=== PATIENT | female | born 2000 | race Caucasian/White ===

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

== ENCOUNTER 2022-06-28 08:00 | Outpatient (RCR) | payer BC, SELFPAY ==
--- NOTE | 2022-06-28 09:00 | BH.SGPN.GN ---
Behaviors/Verbalizations/Mental Status: [] Eye contact is good. Motor activity is appropriate. Appearance is casual. Speech is Appropriate. Mood is anxious. Affect is congruent. Thoughts are linear and logical. No evidence of psychosis. Reviewed daily check in sheet and no reports of suicidal ideations or intent. Client Response/Progress/Benefit: [] Pt participated when prompted. Attentive. This was pt?s first day in [facility] and she briefly introduced herself to the group. Group provided feedback, suggestions, and guidance for her first day/week in [facility] which was beneficial .Will continue in [facility] to maintain safety, stabilize mood, and increase healthy coping skills. Narrative Note: []
--- NOTE | 2022-06-28 09:00 | BH.COMM_ITS ---
Communication Note - Communication with Client Communication Note: Pt completed admission paperwork and [place] [facility]. Moderate risk. Denies active SI, plan, or intent. Consulted with Dr. Krueger with plan to admit to [facility] with dx of F31.81
--- NOTE | 2022-06-28 10:14 | BH.SGPN.GN ---
Behaviors/Verbalizations/Mental Status: [] Client alert and oriented, neatly dressed and groomed. Eye contact good. Motor activity appropriate. Speech normal. Affect congruent, mood euthymic. Thoughts linear, logical, no signs of hallucinations or delusions. Client Response/Progress/Benefit: [] Client's first day in program and getting adjusted to group environment. Was an engaged participant AEB client listening and sharing some input. Attentive during psychoeducation on communication styles. Assisted group with identifying barriers of effective communication which included: assuming, shutting down, dominating the conversation, and getting emotional. Benefited from increased awareness of different communication barriers, styles, and the importance of communicating effectively to improve mental wellness. Will continue IOP tx to increase overall functioning, increase self-awareness, and prevent decompensation. Narrative Note: []
--- NOTE | 2022-07-03 09:03 | BH.SGPN.GN ---
Behaviors/Verbalizations/Mental Status: []Eye contact good, casually dressed, motor activity appropriate, speech normal rate and tone, mood dysthymic and anxious, congruent affect, thoughts linear and intact, no evidence of delusions or hallucinations. Reviewed pt's symptom tracker, pt denies suicidal ideation, plan, or intent as of this date. Future oriented. Client Response/Progress/Benefit: []Pt responded well to session, attentive and willing to process with group. Pt reports feeling numb, but positive this morning. Pt did well to identify wins, which included challenging herself to be social on two occasions over the weekend. Shared spending time with her roommates by doing karaoke at home which she found really enjoyable. Additionally, identified use of positive self-talk and opposite action to go to a social event Sunday night, despite not usually enjoying larger social settings. Expressed trying to remain present rather than disengaged, which she feels improved her mood throughout. Current stressor identified as not enjoying track and field as much as she has in the past. Shared she still loves the sport but is finding she is unsure of whether or not she wants to continue to compete. Receptive of supportive feedback provided by the group and noted plans to continue to monitor her feelings about the sport as she is addressing her mental health sx as well. Progress noted in beginning to apply skills learned thus far in IOP group. Recommended continued IOP tx to continue to improve consistent use of healthy emotion regulation skills, promote mood stability, as well as prevent decompensation. Narrative Note: []
--- NOTE | 2022-07-03 10:10 | BH.SGPN.GN ---
Behaviors/Verbalizations/Mental Status: []Pt alert and oriented, neatly dressed and groomed. Eye contact fair. Motor activity appropriate. Speech within normal limits. Affect constricted, mood content. Thoughts linear, logical, no signs of hallucinations or delusions. Client Response/Progress/Benefit: []Pt was an engaged participant AEB providing input, listening to others, and taking notes. Participated in interactive group discussion on internal and external barriers to mental health progress. Pt described current reality using a desert metaphor. Pt shared feeling like ?I?m in a desert and I see a bunch of small problems that I make big problems, but I?m ignoring the big one.? Reported desired reality is being able to protect herself in this ?desert? by using healthy skills and challenging her perspective. Pt?s strengths in current reality included self-awareness and planning ahead. Pt shared personal barriers to desired realty include: negative thinking and emotional dysregulation. Benefited from increased awareness of current barriers to progress as well as current/desired realities. Pt to continue IOP to prevent decompensation, improve daily functioning, and increase use of healthy coping skills. ? Narrative Note: []
--- NOTE | 2022-07-05 09:00 | BH.SGPN.GN ---
Behaviors/Verbalizations/Mental Status: []Pt alert and oriented, neatly dressed and groomed. Eye contact fair. Motor activity appropriate. Speech within normal limits. Affect constricted, mood mellow. Thoughts linear, logical, no signs of hallucinations or delusions. Reviewed pt?s symptom tracker, no risk for suicidal ideation, plan, or intent as of 07/05/22 Client Response/Progress/Benefit: [] Pt responded well to session, quiet, but participating when prompted. Pt reports feeling tired this morning due to staying up late for school work. Pt shared her stressor is that she has so much work to do and a track meet this weekend. Pt reported she knows she will get the work done she just has to find the time. Pt's mental health wins today are that she is going to the gym consistently and she had a [place] squatting. Pt also booked a trip for this summer with a friend which pt is looking forward to. Pt appeared to benefit from reflecting on positives. Pt will continue IOP tx to prevent decompensation, improve daily functioning, and gain healthy coping skills. Narrative Note: []
--- NOTE | 2022-07-05 10:35 | BH.MTP_ITS ---
[facility] Treatment Plan - Patient Information Program Physician:: Dr. Charlene Krueger Primary Therapist:: DAMASO Flores - Psychiatric Diagnoses Psychiatric Diagnoses:: 1. Bipolar 1 disorder, most recent episode depression, severe with psychotic features (F31.5). 2. Generalized anxiety disorder. 3. Cluster B traits. 4. Marijuana and mushroom use disorder Diagnosis Code(s):: F 31.5 - Estimated LOS Estimated LOS (in weeks):: 6 Problem/Goal #1 - Problem/Goal #1 Stated Goal:: Pt will increase mood stability by reducing hopelessness, worthlessness, paranoia, and anhedonia. Description of Barriers: Pt has experienced numerous traumatic events in her life. Pt does not currently have an outpatient mental health counselor outside of [facility]. Pt's mental health symptoms have been impacting her academic, social, and athletic performance and pt is worried about her ability to continue to function in these areas. Pt and her parents have a tense relationship and currently are on limited speaking terms. Recently experienced psychosis for the first time several months ago and is no longer physically able to take lithium which she reports as helping with managing these sx. Functional Impact: The patient is a 21-year-old single female who was referred to the [facility] behavioral health IOP program by her counselor at the [facility] the [facility]. The patient in the past 2 years has been diagnosed with anxiety, bipolar 1 disorder with psychotic features among others. The patient states she was diagnosed with PMDD when she was 13 years old. The patient had a psychiatric admission in August 2021 at [facility] after she was started on Prozac and became impulsive, ran into the nassar and was suicidal w/ possible psychosis. She states that her symptoms started when she began attending college. She was smoking weed and occasionally using mushrooms psychedelic drugs. Hx of hermann, auditory, and visual hallucinations, as well as increased SI while taking Prozac following hospitalization. She does admit that she has been smoking marijuana once or twice a week all through college. She states that she experiences manic episodes and bizarre behaviors like auditory hallucinations at times. The patient has had various medications since being discharged in August from the hospital in August 2021 including Abilify and Seroquel and lithium. She says she has been somewhat paranoid in the last few weeks she has been depressed for the past 2 or 3 weeks and feels hopeless and is afraid that things will get bad again the patient gets manic episodically and she said her last manic episode was in March 2022 when she had impulsive behavior, hypersexuality, decreased sleep to less than or equal to 3 hours a night and was not tired. She was also hallucinating at that time. The patient currently has had some passive thoughts of but denies any suicidal ideation since 1 week ago. Patient denies any self-harm. Patient has had no suicide attempts since December 2021. She endorses hopelessness, worthlessness and anhedonia, isolation, increased sleep, avoidance, and increased rumination. Goal Relevant Strengths/Supports: Pt is motivated and reports willingness to try new skills. Pt has a PCP and outpatient psychiatrist. - Objectives Objective #1 Stated Objective: Pt will learn and utilize 2-3 healthy coping strategies to better manage depressive symptoms and reduce thoughts of as shown by a decrease of DMS-5 symptoms for depression. Interventions: Through group and individual sessions, therapist will help pt identify triggers and warning signs of depression and guilt including emotional, physical, and behavioral changes. Therapist will teach pt various coping skills to manage symptoms and give pt tangible resources to use to regulate emotions. Therapist will use cognitive restructuring techniques and help pt gain awareness of negative thoughts that reinforce guilt and depression. Therapist will provide psychoeducation on maintenance cycles and help pt learn ways to break unhealthy maintenance cycles. Therapist will help pt incorporate behavioral activation and assist pt in setting SMART goals. Discharge Criteria: Pt will have met this goal when can report learning and using at least 2 coping skills to manage depressive symptoms and reduce isolat ion. Additionally, pt will have met this goal when pt's DSM-5 scores for depression decrease. Target Date: 08/09/22 Review Date: 07/19/22 Objective #2 Stated Objective: Pt will identify at least 2-3 negative self-talk messages used to reinforce negative core beliefs, worthlessness, and isolation and replace thoughts with balanced, realistic messages. Interventions: Therapist will help pt identify distorted, negative beliefs about self and replace with more realistic, affirmative messages. Therapist will use CBT and DBT to help pt increase insight to the connection between thoughts, emotions, and behaviors. Therapist will encourage pt to practice thought challenging. Discharge Criteria: Pt will have achieved this goal when can verbalize at least 2 cognitive distortions and effectively replace those thoughts with affirmative messages. Target Date: 08/09/22 Review Date: 07/19/22 Problem/Goal #2 - Problem/Goal #2 Stated Goal:: Will reduce avoidance and anxiety through increasing emotional regulation and distress tolerance skills Description of Barriers: Pt has experienced numerous traumatic events in her life. Pt does not currently have an outpatient mental health counselor outside of [facility]. Pt's mental health symptoms have been impacting her academic, social, and athletic performance and pt is worried about her ability to continue to function in these areas. Pt and her parents have a tense relationship and currently are on limited speaking terms. Recently experienced psychosis for the first time several months ago and is no longer physically able to take lithium which she reports as helping with managing these sx. Functional Impact: The patient is a 21-year-old single female who was referred to the [facility] behavioral health IOP program by her counselor at the [facility] and the [facility]. The patient in the past 2 years has been diagnosed with anxiety, bipolar 1 disorder with psychotic features among others. The patient states she was diagnosed with PMDD when she was 13 years old. The patient had a psychiatric admission in August 2021 at [facility] after she was started on Prozac and became impulsive, ran into the nassar and was suicidal w/ possible psychosis. She states that her symptoms started when she began attending college. She was smoking weed and occasionally using mushrooms psychedelic drugs. Hx of hermann, auditory, and visual hallucinations, as well as increased SI while taking Prozac following hospitalization. She does admit that she has been smoking marijuana once or twice a week all through college. She states that she experiences manic episodes and bizarre behaviors like auditory hallucinations at times. The patient has had various medications since being discharged in August from the hospital in August 2021 including Abilify and Seroquel and lithium. She says she has been somewhat paranoid in the last few weeks she has been depressed for the past 2 or 3 weeks and feels hopeless and is afraid that things will get bad again the patient gets manic episodically and she said her last manic episode was in March 2022 when she had impulsive behavior, hypersexuality, decreased sleep to less than or equal to 3 hours a night and was not tired. She was also hallucinating at that time. The patient currently has had some passive thoughts of but denies any suicidal ideation since 1 week ago. Patient denies any self-harm. Patient has had no suicide attempts since December 2021. She endorses hopelessness, worthlessness and anhedonia, isolation, increased sleep, avoidance, and increased rumination. Goal Relevant Strengths/Supports: Pt is motivated and reports willingness to try new skills. Pt has a PCP and outpatient psychiatrist. - Objectives Objective #1 Stated Objective: Pt will identify 2-3 anxiety triggers and 2 coping skills to use when feeling anxious to manage anxiety as shown by reducing DSM-5 scores for anxiety Interventions: Therapist will provide education on anxiety, avoidance behaviors, and maintenance cycles. Therapist will help pt explore personal symptoms and warning signs of anxiety. Therapist will teach pt coping skills to improve emotional regulation, mindfulness, and distress tolerance to help pt cope with anxiety in the moment. Discharge Criteria: Pt will have accomplished this goal when he can identify at least 2 triggers and report using 2 coping skills to manage anxiety. Additionally, pt will have accomplished this goal AEB reduction of DSM-5 scores for anxiety. Target Date: 08/09/22 Review Date: 07/19/22 Objective #2 Stated Objective: Pt will increase ability to manage stressors and anxiety by gaining 2-3 distress tolerance skills. Interventions: Through group and individual therapy, pt will learn various coping skills to help manage stress and anxiety. Therapist will utilize DBT distress tolerance skills to increase awareness and give pt tools to more effectively manage anxiety. Therapist will provide psychoeducation on emotional regulation and help pt identify unhealthy coping skills she wants to change. Discharge Criteria: Pt will have accomplished this goal when can report improved ability to manage stressors and identify at least 2 distress tolerance skill Target Date: 08/09/22 Review Date: 07/19/22
--- NOTE | 2022-07-05 10:38 | BH.MDN ---
Multi-Disciplinary Note - Note 45-min Individual Time Started:: 11:15 Date: 07/05/22 Purpose of session/treatment goals addressed:: To gather information on pt's current stressors, symptoms, triggers, and tx goals. Another goal was to build rapport and provide emotional support. Eye Contact:: Good Motor Activity:: Appropriate Appearance:: Casual Speech:: Appropriate Mood:: Anxious, Dysthymic Affect:: Congruent Thoughts:: Linear, Logical, No evidence of hallucinations/delusions noted Staff Interventions:: rapport building, strengths perspective, treatment planning, goal setting, other - introduced concept of negative core beliefs and provided mistaken belief assessment to complete for next session. Client Response:: Pt responded well to session, open to meeting with therapist. Pt reports she is enjoying tx so far and feels comfortable in the group environment, noting ?I don?t have to mask here?. Pt is a [employer] student and was referred by [facility] due to worsening sx of depression and paranoia over the past few months. Pt shared she had experienced hermann for most of the fall semester (Dec.-Mar.) and feels she is now beginning a depressive episode. Discussed fears that she will ?get to the point I was at last year? as pt had been hospitalized in August for suicidal ideation with possible psychosis. Pt has been working with Natalie at the [facility] since then and was previously prescribed lithium which she found helpful, but was recently taken off this due to adverse effects on her liver and kidney functioning. Reports she would like to work on finding another medication to aid with mood stabilization, as well as learn to better identify and cope with the symptoms of her hermann and depression. Pt able to identify some warning signs for both hermann and depressive cycles, but indicates she is not always aware of these in the moment. Additionally, reports wanting to work on confidence and not comparing herself so much to others, specifically in athletics. 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 Pt receptive to meeting with therapist weekly and working on mood management/healthy coping, goal setting, and thought challenging. Risks/Concerns:: Pt denies any active suicidal ideations, plan, or intent as of 07/05/22. Pt reports having fleeting suicidal ideations within the last month, but denies any intent. Progress Toward Goals/Plan:: Pt recently starting IOP tx and reports it has been beneficial thus far. Pt reports her symptoms are impacting all areas of her life including academics, athletics, social and personal relationships, as well as her physical health. Pt endorses a depressed mood, crying spells, urges to engage in isolative behaviors, hx of impulsivity, negative thinking, and irritability. Pt will continue IOP tx to prevent decompensation, gain healthy coping skills, and help pt return to normal level of functioning. Time Stopped:: 12:00
--- NOTE | 2022-07-05 10:40 | BH.NA ---
Physical Data - Vital Signs Pulse Rate: 66 Blood Pressure: 129/66 - Height/Weight Height: 1.78 m Weight:: 88.451 kg Weight in Pounds: 195.0 lbs Current Medication Compliance - Medication Compliance Do you take your medication as prescribed?: Yes Nutritional History - Appetite Nutritional Instructions:: If client shows signs of a swallowing problem, weight change of 10 pounds or more in the last month, or is on a diabetic diet, the physician will review and request a dietitian consult, as appropriate. All unintentional weight loss will be referred to the physician for decision on need for dietitian consult. Describe your appetite:: Good - Client states while on Seroquel, she gained about 15lbs in one month. Functional Assessment - Sleep Pattern Describe any problems with sleeping: Client states her sleep varies, but states some days she sleeps 13-14 hours. - Activities Motor Activity:: Functional Sensory/Communication Assess - Communication Problems Do you have difficulty understanding what people are saying?: No Learning Assessment - Education What is your level of education?: Some College Medical Problems/History - Pain Assessment Do you have acute or chronic pain?: No - Additional History Additional comments:: PMDD, OCD, anxiety, bipolar Surgical History - Surgical History Have you had any surgeries? If so, list type and date:: Yes - wisdom teeth Substance Abuse - Substance Abuse Please describe substance abuse in the last 30 days:: Client reports some social alcohol use. Client denies tobacco use. Client states she uses marijuana about once per week, and uses mushrooms about once per month. Client denies caffeine use. Mental Status Summary - Mental Status Significant Findings/Observations on Appearance and Mood:: Client is alert and oriented x 4. Client is casually groomed with good hygiene. Client is cooperative with assessment. Client makes fair eye contact. Client has appropriate affect. Client has normal processing. Client admits to some hallucinations/delusions at times, stating sometimes they are small and hearing people calling her name when no one is in the room with her, or when she is stopped at a stop sign the roads look like they are moving. Client states about a month ago she had a bigger delusion when the different voices in her head (all in her voice she states, but states she does not have control of what they say) have a conversation with each other or she has had a conversation with them. Client denies SI this day, but does state Sometimes I wish that I would have just killed myself like I tried to before. Suicide Assessment - Suicidal Ideation Are you currently or have you been suicidal in the past?: Yes - denies SI this day Suicidal Intentional Rating Scale (SIRS): Suicidal thoughts (past) Physician Notification: If Active suicidal thoughts/Will not contract for safety is checked, contact physician and document in the Physician Notification section below. Assault History/Potential Past Psychiatric History - MH Treatment Hx Past Psychiatric Medications:: [place] (weaning off, altered kidney function), Prozac (hallucinations, SI), Seroquel (increased sleep, weight gain), Vistaril Age of first mental health symptoms: Client states she was diagnosed with PMDD around age 13, but states she was just diagnosed with anxiety, OCD and bipolar within the last year and started taking medication for mental health in the last year. Describe (age, circumstance, etc) any past hospitalizations: 2013 at age 13 for SI, anger. August 2021 at [facility] for delusions, SI. Client states from about June 2021 until January 2022, she had over 20 suicide attempts by overdose, but was never hospitalized for them. Current providers for mental health treatment (counselor, psychiatrist, human services case manager, etc.): counselor at [facility], psychiatry teacher at [employer] Fall Risk Assessment - Age Age: Less than 60 - Mental Status Mental Status: Willing & able to ask for assistance when needed - Physical Status Physical Status: No problems - Impairments Impairments: None - Elimination Elimination: Continent AND independent - Gait or Balance Gait or Balance: Walks independently - Hx of Falls History of falls in the past 6 months: No known history - Medications/Substances Psychotropics:: Antipsychotics, Mood stabilizers Medications/substances used within the past 24 hours or ordered to administer: 1-2 of the medications/substances listed above - Total Score Total Points:: 1 RN Summary of Impressions - Impressions Recommendations: Include psychiatric and medical issues, treatment planning recommendations, and discharge planning needs. Impressions: Psychiatric Issues: 1. Bipolar 1 disorder, most recent episode depression, severe with psychotic features (F31.5). 2. Generalized anxiety disorder. 3. Cluster B traits. 4. Marijuana and mushroom use disorder - Level of Care How do the client's current symptoms and functional deficits support need for this level of care?: Client was referred to [facility] by [facility] counselor for increased depression symptoms since weaning off [place]. Client was hospitalized in August 2021 for delusions/hallucinations/bizarre behavior and SI. Client states when she started on [place] in January 2022, she stopped having suicide attempts by OD and her delusions/hallucinations were better. She states since weaning [place] down to eventually stop it completely, she has been having some hallucinations/delusions again, panic attacks about once per week, and depression at times feeling like I wish I would have killed myself by now. Client denies SI this day, and states her last suicide attempt was in January 2022. [facility] will promote gains an prevent further decompensation while providing social support and skills training.
[2022-07-05 11:09] VITALS: BP 129/66; PULSE 66
--- NOTE | 2022-07-05 13:12 | BH.PSY.EVA_ITS ---
Psychiatric Evaluation Initial Evaluation Initial Evaluation: History of Present Illness: [] The patient is a 21-year-old single female who was referred to the [facility] behavioral health IOP program by her counselor at the [employer] [facility] [employer]. The patient in the past 2 years has been diagnosed with anxiety, bipolar 1 disorder with psychotic features among others. The patient states she was diagnosed with PMDD when she was 13 years old. She is in a somewhat inconsistent historian although she is goal-directed there are just inconsistencies in her history. The patient is a student at the [employer] and currently lives in a house off campus with 7 roommates. The patient had a psychiatric admission in August 2021 at [facility] after she was started on Prozac and became impulsive, ran into the nassar and was suicidal and possibly psychotic. She states that her symptoms started when she began attending college at [employer]. She was smoking weed and occasionally using mushrooms psychedelic drugs. She states that her family in [place] wants her to come home and they want a drug test her weekly but the patient refused so they disowned her. Patient said that she had some depression and was prescribed the Prozac which led to her admission in August 2021 when she became manic and had auditory and visual hallucinations while taking Prozac and suicidal ideation. She states that she had taken mushrooms 3 weeks before that incident but not nothing right around that time. She does admit that she has been smoking marijuana once or twice a week all through college. She states that she experiences manic episodes and bizarre behaviors like auditory hallucinations at times. She is also hypersexual and had 22 sexual partners in the fall semester of college in 2021. The patient has had various medications since being discharged in August from the hospital in August 2021 including Abilify and Seroquel and lithium. She states that she moved around from provider to provider and her meds were changed a lot. She was recently put on lithium and says this was the best she felt but due to kidney damage she is being now weaned off the lithium but is on other meds also. The patient is worried about how she might function when she is off the lithium. She is not getting auditory hallucinations lately although she admits that 3 weeks ago she had several voices conversing but it only lasted about 3 hours. She has not had any hallucinations since 3 weeks ago. She says she has been somewhat paranoid in the last few weeks she has been depressed for the past 2 or 3 weeks and feels hopeless and is afraid that things will get bad again the patient gets manic episodically and she said her last manic episode was in March 2022 when she had impulsive behavior, hypersexuality, decreased sleep to less than or equal to 3 hours a night and was not tired. She was also hallucinating at that time. The patient currently has had some passive thoughts of but denies any suicidal ideation since 1 week ago. Patient denies any self-harm. Patient has had no suicide attempts since December 2021. She endorses hopelessness, worthlessness and anhedonia. She is currently sleeping about 12 hours a day and feels guilty that she is not seeing her friends. She denies self-harm ever. She does worry by nature and has panic attacks about once every 2 weeks or so. She denies history of eating disorder or purging. She denies trauma or PTSD. She had a few concussions while playing soccer but denies any seizures. Current Psychiatric Medications: [] Abilify 15 mg p.o. daily (on this with changes in the dose since August 2021); risperidone 0.5 mg p.o. twice daily (x1 week); Lamictal 25 mg daily and with the dose increasing as in a normal starter pack for 1 week; lithium 4 mg p.o. daily (weaning down from 1200 mg as directed by her outpatient provider due to kidney effects);. Past Psychiatric History: [] The patient sees a psych nurse practitioner at [facility] now Natalie yadav. She sees a counselor at [facility] for the past year. She has 2 psychiatric admissions. Her first 1 was at age 13 for anger and suicidal ideation. Her second admission was in September 05, 2021 after becoming manic and psychotic after starting Prozac. The patient states she has 20+ past suicide attempts by Tylenol or ibuprofen overdose between 2021 or 1 in 2022. She was diagnosed during the past year with bipolar 1 and her other diagnoses. Her past psych meds include Abilify, Prozac and Seroquel and she had side effects on these. She feels she is more impulsive on the Abilify since August 2021. She was first depressed at age 13 and her first hermann she feels was August 2021 but she is uncertain. Substance Use History: [] Patient denies cigarette or nicotine use. Occasional alcohol use. She uses marijuana via smoking or edibles about twice per week and mushrooms about once every 2 months. No rehab. Allergies: [] No known allergies except adverse effects and side effects from Prozac and Seroquel. Medications: [] control pills and psych meds as dictated above. Past Medical History: [] [place] teeth. No other illnesses. No pregnancies known. On control pills and is sexually active. Family Psychiatric History: [] Patient feels her father and mother both have issues but they are undiagnosed. She states that her counselor believes her mother may be borderline and was manipulative. Her father is a compulsive liar and sleeps with his gun under his pillow every night. Younger sister has some depression or something. No suicides in the family. No known drug issues. Personal/Social History: [] Patient was born and raised in [facility]. She describes her childhood as good but feels that her parents were somewhat neglectful. She has younger sister who is 3 years younger than her. She denies abuse but states there was emotional neglect in her childhood by her parents. She currently lives on campus right off campus at the [employer] in a house with 5 males and 2 females. She feels safe living there and feels supported by her housemates. Her primary support is her best friend Francisca who lives in the house. She works on campus at the [employer] which she feels is fine. She is currently single and has been in 1 prior relationship last year with the boyfriend and a girlfriend simultaneously. She describes sexual hypersexuality and impulsive activity and admits to 22 new sexual partners in the fall semester of 2021. Denies abuse in the relationships. 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 Legal History: [] Has her [employer] driver's license. No DUIs and no arrests. Review of Systems: [] Review of systems negative except as noted in present illness. She is bisexual and is sexually active and does not have periods on her control pills. Vital Signs: [] Vital signs and exam are reviewed in the medical records and in the nurses notes and updated and the patient is found able to participate medically in the IOP program. Mental Status Examination: [] Patient is a 21-year-old female who appears normal or for stated age and is casually dressed and groomed with good hygiene. She is wearing a midriff top and has a piercing in her bellybutton. She is ambulatory with a normal gait and has no psychomotor agitation or retardation. She is cooperative and pleasant during the interview. Eye contact is good and speech is normal rate and rhythm and fluent with no pressure. Mood is depressed and anxious. Affect is full and normal. Thought process is organized and goal-directed but inconsistent. Thought content: There is evidence of passive thoughts of recently but there is no evidence of suicidal ideation, homicidal ideation, hallucinations, delusions or plan for suicide. Reality testing is intact. Intelligence is average or above average. Passivity is high. Insight is limited. Judgment is poor at times but grossly intact today. Diagnoses: [] 1. Bipolar 1 disorder, most recent episode depression, severe with psychotic features (F31.5) 2. Generalized anxiety disorder 3. Cluster B traits 4. Marijuana and mushroom use disorder 5. Primary support issues Plan: [] The patient will start the IOP program at [facility] in [facility] as the structure, support, education and group therapy will hopefully prevent worsening of the patient's symptoms which could require hospitalization. The patient felt safe during the interview and if it anytime she does not feel safe she will let us know or go to the emergency room. The risks, options and possible complications and side effects of the medications were discussed with the patient and she understands and accepts these. The patient states that she had to be taken off lithium because her creatinine increased from 1.06-1.2 but I am uncertain of this. The patient notes that she has been more impulsive since being on Abilify since August 2021 so I recommended the patient wean the Abilify and change room attendant to a different medication for bipolar disorder with psychosis. The patient is instructed strongly to not use any marijuana and no drug use at all ever. She understands marijuana increases the onset and severity of psychosis and probably contributed to her episodes but it is uncertain. The patient is going to continue weaning the lithium over 6 weeks as instructed by her outpatient provider. The Lamictal will be increased as directed by her outpatient provider. Changes made today include discontinuing the Risperdal. Decrease the Abilify to 10 mg p.o. p.o. daily when she starts Vraylar 1.5 mg p.o. daily. Prescription is sent in for the Vraylar. I will see the patient in 1 to 2 weeks and at that time then we will continue weaning the Abilify and increasing the Vraylar. Patient will continue to follow-up with her outpatient providers and I will see the patient in follow-up in 1 week in the IOP program.
--- NOTE | 2022-07-05 13:29 | BH.DR.ITP ---
Initial Treatment Plan Patient Information Visit Information: ADMISSION DATE: EXPECTED LOS: 4-6 weeks Problems/Symptoms Problem #1:: Mood instability Symptom:: Depression, sadness, anhedonia, hopelessness, passive thoughts of , delusions of paranoia and occasional auditory hallucinations Problem #2:: Anxiety Symptom:: Worry, rumination, panic attack
--- NOTE | 2022-07-10 09:05 | BH.SGPN.GN ---
Behaviors/Verbalizations/Mental Status: [] Eye contact is good. Motor activity is appropriate. Appearance is casual. Speech is Appropriate. Mood is anxious/irritable. Affect is congruent. Thoughts are linear and logical. No evidence of psychosis. Reviewed daily check in sheet and no reports of suicidal ideations or intent. Client Response/Progress/Benefit: [] Pt participated at times during the group discussion. Attentive. Daily symptom tracker notes 06/18 for anxiety and depression. Emotion for today is motivated. Pt shared several mental health wins from over the long weekend. She had to travel to [place] for her track team and reports utilized coping skills to manager float negative thoughts. Shared how this helped her be more confident and focus on her events which lead to achieving a personal best. Utilizing mindfulness and thought challenging. I'm really happy. Elaborated on how her ruminations and negative automatic thoughts were impacting her track events in the recent past. Also had insight while traveling that she isolates more than she realized as she felt uncomfortable away from her comfort zone (her house and friends). Overall the intensity of her thoughts have decreased and she feels more confidence in her ability to manage her distress. Benefited from group support, encouragement, and feedback. Will continue in IOP to stablize mood, increase healthy coping, and improve functioning. Narrative Note: []
--- NOTE | 2022-07-10 10:15 | BH.SGPN.GN ---
Behaviors/Verbalizations/Mental Status: []Client alert and oriented, casually dressed and groomed. Eye contact good. Motor activity appropriate. Speech within normal limits. Affect congruent, mood anxious and dysthymic. Thoughts linear, logical, no signs of hallucinations or delusions. Client Response/Progress/Benefit: []Client responded well to session AEB sharing and listening attentively to others. Client participated in group discussion defining anxiety and common characteristics. Group discussed the impacts of anxiety, its benefits, as well as when it becomes unhealthy. Clinician provided psychoeducation on anxiety diagnoses and the anxiety triangle of physical symptoms, safety behaviors, and common anxious thoughts. Client identified her own physical sx to include stomach aches, stress hives, and tapping her feet and safety behaviors as avoidance, reassurance seeking, and shutting down. Client appeared to benefit from increased knowledge of anxiety diagnoses and causes, as well as improved self-awareness of anxiety symptoms. Will continue IOP treatment to increase consistency of healthy coping skills, promote mood stability, and prevent decompensation. Narrative Note: []
--- NOTE | 2022-07-10 14:27 | BH.MDN ---
Multi-Disciplinary Note - Note 30-min Individual Time Started:: 11:27 Date: 07/10/22 Purpose of session/treatment goals addressed:: The purpose of this session was to review client's progress as well as strategies that will continue to promote mood stability and gains made in IOP. Another goal was to discuss discharge recommendations and process any current stressors. Eye Contact:: Good Motor Activity:: Appropriate Appearance:: Casual Speech:: Appropriate Mood:: Anxious, Dysthymic Affect:: Congruent Thoughts:: Linear, Logical, No evidence of hallucinations/delusions noted Staff Interventions:: motivational interviewing, psychoeducation on: - anxiety management and exposure therapy, CBT techniques, strengths perspective, goal setting Client Response:: Client responded well to session, open to meeting with therapist. Client excitedly reported doing well at her track meet this past weekend and feeling proud of herself as a result. Shared she initially did not throw as far as she would have like, but used skills discussed in previous session instead of allowing this to get her down and negatively impact her mood. Noted use of positive self-talk, thought challenging, and using mindfulness to help her stay in the present moment and enjoy herself. Went on to discuss that one concern from the weekend was difficulties in coping with spending time away from her housemates. Shared she struggles to attend any social activities without having one of them present for comfort. Pt described difficulties interacting with fellow teammates when not in the practice or competition setting and ultimately spent her free time throughout the weekend either texting one of her housemates or sleeping to avoid having to be social. Shared difficulties being from her housemates extends into daily functioning as she does not attend any social events alone, does not eat lunch separate from them, and had a hard time coping during winter break when away from them for an entire week. Pt reports spending 6+ hours on the phone with one of her housemates each day of break. Provided insight that she believes she transferred dependence on her mother from childhood to her housemates now that she is in a new environment. Able to identify consequences this is having on her mental health, ability to form new relationships or try new things, and daily functioning. Additionally receptive of discussion on intrusive thoughts and exposure therapy as pt shared several intrusive thoughts when she is away from her housemates. Reports willingness to complete fear ladder worksheet reviewed in session and begin working on addressing anxiety about being in social settings apart from her comfort people/supports. Risks/Concerns:: Client denies any suicidal ideations, plan, or intent as of 07/10/22. Client denies any homicidal ideations. Progress Toward Goals/Plan:: Pt is making progress towards her tx goals AEB pt's report of using healthy coping skills and beginning to see improvements in confidence and ability to manage anxiety sx as a result. Additionally reports improved ability to identify and begin challenging negative thinking patterns, but is still inconsistent in effectively doing so. Pt continues to struggle with sadness, anxiety, and difficulties effectively communicating with her supports, as well as mood instability, and notes dependance on others for emotional stability. Pt will continue IOP tx to reinforce healthy coping skills, continue to improve communication skills, and prevent decompensation. Time Stopped:: 11:54
== END 2022-07-11 23:59 ==
LOC: BHIOP 08:00
PROVIDERS: Referring Provider Psychiatry & Neurology Psychiatry; Visit Provider Psychiatry & Neurology Psychiatry
DX: F31.5 Bipolar disorder, current episode depressed, severe, with psychotic features (principal); F41.1 Generalized anxiety disorder; F12.90 Cannabis use, unspecified, uncomplicated; Z79.899 Other long term (current) drug therapy
CPT/HCPCS: S9480; 90832; 90834; 90853

== ENCOUNTER 2022-07-12 06:49 | Outpatient (RCR) | payer BC, SELFPAY ==
[2022-07-12 00:36] VITALS: BP 129/66; PULSE 66
--- NOTE | 2022-07-12 10:10 | BH.SGPN.GN ---
Behaviors/Verbalizations/Mental Status: [] Eye contact is fair. Motor activity is appropriate. Appearance is casual. Speech is Appropriate. Mood is depressed. Affect is constricted. Thoughts are linear and logical. No evidence of psychosis or hallucinations. Client Response/Progress/Benefit: [] Pt was a mostly passive participant in group discussion. Engaged in activity. Attentive during psychoeducation. Along with peers was able to identify barriers to taking action. Identified several symptoms and stressors that she feels are holding her back from progress such as fear of abandonment, negative core beliefs, and obsessive/intrusive thoughts. Client stated these things make her scared to do things, which results in her staying stuck. Benefited from increased self-awareness of obstacles. Will continue in IOP to improve daily functioning, increase healthy coping, and prevent decompensation.
--- NOTE | 2022-07-12 11:07 | BH.SGPN.GN ---
Behaviors/Verbalizations/Mental Status: []Client alert and oriented, casually dressed and groomed. Eye contact fair to good. Motor activity appropriate. Speech within normal limits. Affect congruent, mood anxious and dysthymic. Thoughts linear, logical, no signs of hallucinations or delusions. Client Response/Progress/Benefit: []Client responded well to session, taking notes and participating in worksheet discussion. Client connected with the zones of action/change and that making sustainable change comes from stepping out of one?s comfort zone into the learning zone. Client set a goal to gain control over fear of abandonment/codependency. Client reported her goal is to spend time away from her friends at least once a week. Client identified telling someone about goal, checking in with herself, and scheduling time to do so as supports needed to help her accomplish goal. Appeared to benefit from identifying a small goal to benefit mental health. Will continue IOP tx to increase healthy coping, promote mood stability, and prevent decompensation. Narrative Note: []
--- NOTE | 2022-07-12 12:35 | PCM.BH.PN ---
Progress Note Progress Note: And history of Present Illness/Interim History: Patient is a 21-year-old single female who was last seen 1 week ago and has a history of anxiety, bipolar 1 disorder and others. At the initial visit last week the patient was instructed to discontinue her respite all and her Abilify dose was decreased as she felt that she had been more impulsive since she was started on it in August 2021. She tolerated this well and started Vraylar also 1 week ago at 1.5 mg p.o. daily. The patient's mood really is unchanged since 1 week ago and she remains somewhat depressed. She denies however any hallucinations or paranoia. She denies any symptoms of hermann. She still has occasional passive thoughts of but denies any suicidal ideation or thoughts of self-harm. She still has some hopelessness, worthlessness and anhedonia. Current Psychiatric Medications: [] Abilify decreased to 10 mg p.o. daily 1 week ago; risperidone discontinued 1 week ago; Lamictal 50 mg p.o. daily; lithium 400 mg daily but she is weaning down as directed by her outpatient provider due to effects on the kidney; Vraylar 1.5 mg p.o. daily (x6 days now) Mental Status Examination: [] The patient is a 21-year-old female who appears normal for stated age and is casually dressed and groomed with good hygiene. She has no psychomotor agitation or retardation and is ambulatory with a normal gait. She is cooperative during the interview. Eye contact is good and speech is normal rate and rhythm and fluent with no pressure. Mood is depressed. Affect is full and normal. Thought process is organized and goal-directed. Thought content: There is evidence of passive thoughts of recently but there is no evidence of suicidal ideation, plan for suicide, homicidal ideation, hallucinations or delusions. Reality testing is intact. Intelligence is average or above. Insight is limited. Judgment is intact. Impulsivity is high. Diagnoses: [] 1. Bipolar 1 disorder, most recent episode depression, severe with psychotic features (F31.5) (resolving) 2. Generalized anxiety disorder 3. Cluster B traits 4. Marijuana and mushroom use disorder 5. Primary support issues Plan: [] The patient will continue the IOP program at [facility] as the structure, support, education and group therapy will hopefully prevent worsening of the patient's symptoms which could require hospitalization. The patient felt safe during the interview and if it anytime she does not feel safe she will let us know or go to the emergency room. The risk, options, possible complications and side effects of the medications were again discussed with the patient and she understands and accepts these. She will continue the lithium and Lamictal doses as instructed by her outpatient provider. We will continue to decrease her Abilify to 5 mg p.o. daily and she will discontinue the Abilify in 2 weeks if she is doing well (around July 25, 2022). She will increase the dose of Vraylar today and up to 3 mg p.o. daily and prescription is sent in for this. She will continue to follow-up with her outpatient providers and I will see the patient in follow-up in 2 weeks.
--- NOTE | 2022-07-14 09:05 | BH.SGPN.GN ---
Behaviors/Verbalizations/Mental Status: [] Eye contact is good. Motor activity is appropriate. Appearance is neat. Speech is Appropriate. Mood is depressed. Affect is congruent. Thoughts are linear and logical. No evidence of psychosis. Reviewed daily check in sheet and pt reports 3/5 for suicidal thoughts and 1/5 for intent. Therapist will check in on patient after group. Client Response/Progress/Benefit: [] Pt was an active participant. Attentive. Daily symptom tracker notes 3/5 for depression and 4/5 for anxiety. Mental health win was getting dressed up today. Shared how this helps with her self-esteem as well as depression/anxiety. She talked about her fear of abandonment which she termed separation anxiety. Last evening a male roommate appeared upset with patient and verbalized some hurtful comments directed at patient. Pt reports being confused stating I'm not sure what I did wrong. According to pt her roommate was acting odd as he would verbalize something hurtful and negative, however would moments later state something positive your hair looks great. Ruminating on this led her to cry in my room and be more depressed. Other roommates were supportive and encouraged her to engage in activities other than isolation, which was beneficial. In the past I would have just sat in my room and ruminated however I didn't. Pt catastrophizing the situation which group challenged pt on and offered more realistic reframes which was helpful. Pt vented frustrations and processed emotions which was also helpful. Receptive to feedback. Will continue in IOP to maintain safety, increase healthy coping, and prevent decompensation. Narrative Note: []
--- NOTE | 2022-07-14 10:20 | BH.SGPN.GN ---
Behaviors/Verbalizations/Mental Status: []Client alert and oriented, casually dressed and groomed. Eye contact fair. Motor activity appropriate. Speech within normal limits. Affect constricted, mood dysthymic. Thoughts linear, logical, no signs of hallucinations or delusions. Client Response/Progress/Benefit: []Client passive participant AEB only contributing when elicited by therapist. Did appear to listen to others. Worked with group to brainstorm the positive and negative aspects of stress on physical and mental health. Group did well to identify the benefits of stress as well as the impact of distress on performance, relationships, and mental health. Client identified their personal top stressors as: separation anxiety, unknown about her housing at school next semester, and planning a trip to [facility]. Client reports when the stress overflows client reacts by having panic attacks and shutting down. Client seemed to benefit from increased awareness of current stressors and impact stress has on mental health. Recommended to continue IOP tx to improve daily functioining, increase healthy coping, and prevent decompensation.
--- NOTE | 2022-07-14 11:31 | BH.COMM ---
Communication Note - Communication with Client Communication Note: Pt's SI was elevated this AM so this therapist checked in with her. She denies active suicidal ideations, plan, or intent. Denies any plan. Future-oriented. Has a meeting with department head college or university this AM and has to leave IOP early. 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 States that her friend had verbalized hurtful comments to her last night and then was nice. Confused if she did something to upset him. I just had thoughts last night and early this morning. Per daily symptom tracker 07/16 for suicidal thoughts (per pt report not SI but not wanting to be alive. and 05/18 for intent. She processed and vented her stressors process group which per report in group was beneficial. Reports I'm not going to to do anything I just have been having thoughts that I wish I wasn't here. Survival ambivalence. Passive thoughts of . We reviewed crisis numbers and encouraged her to call or go to the ER if symptoms escalate over the weekend. Does not present as imminent danger due to no active SI, plan, or intent. Contract for safety. Long-standing fleeting SI and survival ambivalence. Identifiable stressor (conflict with friend). Utilized internal and coping skills last evening. Has support (roommates) who she sought out last night it was helpful I didn't sit in my roommate and isolate. Plan to attend IOP on Sunday.
--- NOTE | 2022-07-17 09:03 | BH.SGPN.GN ---
Behaviors/Verbalizations/Mental Status: []Eye contact is good. Motor activity is appropriate. Appearance is casual. Speech is Appropriate. Mood is euthymic, anxious. Affect is congruent. Thoughts are linear and logical. No evidence of psychosis. Reviewed daily check in sheet and reports of suicidal ideations as a 1/5 which is below baseline. Pt denies any current plan or intent. Client Response/Progress/Benefit: []Pt was an active participant in group discussion. Attentive. Pt reported mental health positive as well as stressor as challenging herself to sit with the uncomfortable on several occasions throughout the weekend. Went on to explain that she has been working in individual sessions on creating a fear ladder and challenged herself to work on one of the small fears. However, found this to be more challenging and anxiety provoking than initially expected. Pt shared having mixed emotions as a result but acknowledges the importance of continuing to challenge herself to work on it. Able to identify an additional positive which was using several of her healthy coping skills to manage disappointment due to an injury impacting her performance at a recent track meet. Pt appeared to benefit from the supportive group environment as well as acknowledging her own progress. Will continue in [facility] tx to to improve consistent use of healthy anxiety management skills, promote mood stability, and prevent decompensation. Narrative Note: []
--- NOTE | 2022-07-17 10:15 | BH.SGPN.GN ---
Behaviors/Verbalizations/Mental Status: []Pt alert and oriented, neatly dressed and groomed. Eye contact fair. Motor activity appropriate. Speech within normal limits. Affect constricted, mood anxious. Thoughts linear, logical, no signs of hallucinations or delusions. Client Response/Progress/Benefit: []Pt participated at times during the group discussions. Participated during interactive discussion on defining conflict (internal/external) and possible benefits to conflict. Attentive during psychoeducation on conflict styles and engaged during small group activity in which peers identified the benefits and consequences to each conflict style. Pt identified that their primary conflict style is avoiding because she is afraid of losing people if she would to verbalize own beliefs or stand up for herself. Client reported she is working on being more collaborating. Benefited from increased awareness of the impact of conflict styles in mental health. Will continue in IOP to stabilize moods, challenge negative thoughts, and prevent decompensation.
--- NOTE | 2022-07-17 11:10 | BH.SGPN.GN ---
Behaviors/Verbalizations/Mental Status: []Pt alert and oriented, neatly dressed and groomed. Eye contact good. Motor activity appropriate. Speech within normal limits. Affect congruent, mood euthymic. Thoughts linear, logical, no signs of hallucinations or delusions. Client Response/Progress/Benefit: []Pt engaged in session AEB contributing to discussion and engaging in activity. Pt did well to review current conflict style and its impact on mental health. Attentive and taking notes during discussion on strategies for more effectively managing conflict in personal life.? Pt participated in activity and did well to talk through choices with peers. Pt given handout on fair fighting rules and identified that they want to work on not stonewalling when faced with conflict. Appeared to benefit from gaining strategies to help pt better manage conflict. Will continue IOP tx to promote mood stability, reduce negative thinking patterns, and improve daily functioning. Narrative Note: []
--- NOTE | 2022-07-19 08:15 | BH.MDN_ITS ---
Multi-Disciplinary Note - Note 45-min Individual Time Started:: 08:09 Date: 07/19/22 Purpose of session/treatment goals addressed:: The purpose of this session was to create a coping plan for upcoming trip, as well as process recent exposure therapy homework. Eye Contact:: Good Motor Activity:: Appropriate, Restless Appearance:: Casual Speech:: Appropriate Mood:: Euthymic, Anxious Affect:: Congruent Thoughts:: Linear, Logical, No evidence of hallucinations/delusions noted Staff Interventions:: thought challenging, CBT techniques, strengths perspective, goal setting, taught coping skills Client Response:: Client receptive of session, actively engaged throughout. Reports having a positive, yet difficult weekend. Explained she had taken initiative to begin working on the first two steps of her fear ladder. 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 Shared she was able to show the recruit around and introduce them to the team without feeling too anxious, however became increasingly anxious as the day went on and her roommates left to go out for the evening. Reports continuing to struggle to cope with separation anxiety when away from her roommates. 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 Shared she was not anxious about the trip last year as she had been dating another member of the team. However, that relationship has since ended, and client no longer has this support. Most of session was focused on identifying healthy coping skills she can use throughout the trip and ways she can reduce anxiety and sadness when feeling triggered or lonely. Receptive of discussion on safety behaviors and importance of not calling her roommates every time she notices missing them or feels lonely, as this will reinforce these thoughts and feelings. Worked to identify other things she can do instead, such as inviting another teammate to go for a walk on the beach, take a cold shower and listen to music she enjoys, as well as remind herself ?just because I?m not there doesn?t mean they forgot about me?. Reports plans to check-in with her roommates daily but will not leave or cancel other plans in order to do so. Risks/Concerns:: Client denies any suicidal ideations, plan, or intent as of 07/19/22. Client denies any homicidal ideations. Progress Toward Goals/Plan:: Progress noted. Pt continues to report an overall improved mood and acite application of skills she is learning. Shared improved u se of self-compassion and reduced self-criticism, specifically within the athletic setting, as a result. Reports improved use of positive affirmations, mindfulness, and opposite action as well. Additionally shared she is regularly checking-in with her roommates about her mental health and has been working to improve anxiety when roommates are unavailable. COntinues to strugle in the area, additionally reports increased irritability and hypomanic sx. Shared increased urges to act impulsively but no plan or intent. Willing to safety plan as she will be out of town next week. Pt onging drug use may impede consistent effective management of bipolar sx. Pt will continue IOP tx to reinforce healthy coping skills, continue to improve mood stability, and prevent decompensation. Time Stopped:: 08:51
--- NOTE | 2022-07-19 09:00 | BH.SGPN.GN ---
Behaviors/Verbalizations/Mental Status: [] Eye contact is good. Motor activity is appropriate. Appearance is casual. Speech is Appropriate. Mood is anxious. Affect is congruent. Thoughts are linear and logical. No evidence of psychosis. Reviewed daily check in sheet and no reports of suicidal ideations or intent. Client Response/Progress/Benefit: [] Pt was an active participant in group discussion. Attentive. Daily symptom tracker notes 07/16 for anxiety. Mental health win was that she addressed conflict with peer/roommate and was assertive. States it was good and bad however proud of herself for communicating her needs. Stressor is that she is leaving [facility] next week for a track meet. Anxiety-producing as she is leaving her comfort zone and her support. Insight that she is very dependent on her support and comfort zone which leads to isolation and wants to work on this. Group was able to reframe the anxiety inducing event as and opportunity for growth. Benefited from group support, encouragment, and feedback. Will continue in IOP to prevent decompensation, maintain safety, and increase healthy coping skills. Narrative Note: []
--- NOTE | 2022-07-19 10:15 | BH.SGPN.GN ---
Behaviors/Verbalizations/Mental Status: [] Client alert and oriented, casually dressed and groomed. Eye contact good. Motor activity appropriate. Speech within normal limits. Affect constricted, mood euthymic and irritable. Thoughts linear, logical, no signs of hallucinations or delusions. Client Response/Progress/Benefit: Pt participated at times during group discussion. Active during group activity. Attentive during psychoeducation on fear and the impact that fear of failure can have. Pt and peers provided insight on thoughts that contribute to fear of failure such as: I'm not good enough, I won't succeed, I know I can't/couldn't do it, and I could have done that better. Pt and peers were able to identify the benefits to failure in an attempt to reframe. Group identified that failure can be a way to: learn what to do differently, lead to personal growth, increase self-compassion, and problem-solve. Pt benefited from psychoeducation on the impact of fear of failure and changing perspective on how to view setbacks. Pt will continue in IOP to stabilize moods, improve emotion regulation, and prevent decompensation.
--- NOTE | 2022-07-19 11:10 | BH.SGPN.GN ---
Behaviors/Verbalizations/Mental Status: []Client alert and oriented, casually dressed and groomed. Eye contact good. Motor activity appropriate. Speech within normal limits. Affect congruent, mood euthymic. Thoughts linear, logical, no signs of hallucinations or delusions. Client Response/Progress/Benefit: []Client responded well to session, engaged in the experiential activity and attentive throughout group processing. Client reported fear of failure has kept client from leaving her ?safe zone?, new experiences, good relationships, and sports broadcasting internship opportunities. Client completed fear of failure worksheet and was able to identify thoughts and behaviors that reinforce personal fear of failure including difficulty stepping out of comfort zone, past experiences, and negative self talk. Client participated in group discussion regarding strategies to overcome fear of failure. Identified wanting to work setting boundaries, self care, and shifting perspective. Appeared to benefit from increased knowledge of strategies to combat fear of failure and gaining self-awareness. Client will continue IOP tx to increase emotional regulations skills and improve overall functioning. Narrative Note: []
--- NOTE | 2022-07-21 09:00 | BH.SGPN.GN ---
Behaviors/Verbalizations/Mental Status: []Pt alert and oriented, neatly dressed and groomed. Eye contact good. Motor activity appropriate. Speech within normal limits. Affect bright/full, mood euphoric. Thoughts linear, logical, no signs of hallucinations or delusions. Reviewed pt?s symptom tracker, no risk for suicidal ideation, plan, or intent as of 07/21/22 Client Response/Progress/Benefit: []Pt responded well to session, highly engaged today. Pt stated she feels great, better than ever, euphoric this morning. Pt reports her roommates are worried that she is becoming manic and pt agrees there are warning signs. Pt shared she is trying to be more proactive about her warning signs by communicating with positive supports and maintaining sobriety this weekend. However, pt does still plan to go to a rave this weekend, which could be a trigger. Pt encouraged to maintain a sleep/wake schedule and avoid substances. Pt was receptive to this and is open to continuing to reach out to her friends to hold pt accountable. Pt appeared to benefit from group feedback. Pt will continue IOP tx to prevent decompensation, increase emotional regulation skills, and monitor mood. Narrative Note: []
--- NOTE | 2022-07-21 10:10 | BH.SGPN.GN ---
Behaviors/Verbalizations/Mental Status: [] Eye contact is good. Motor activity is appropriate. Appearance is casual. Speech is Appropriate. Mood is anxious. Affect is congruent. Thoughts are linear and logical. No evidence of psychosis. Client Response/Progress/Benefit: [] Pt was an active participant in group discussions. Attentive during psychoeducation. Participated during interactive discussions in which peers attempted to define crisis. Group also worked together to identify unhealthy responses to crisis which included; isolation, self-harm, over-sleeping, impulsive activities, over-sharing, and lashing out. Pt identified her top 3 warning signs that she is in crisis which were 1.OCD Flare up 2. Apathy 3.Increased impulsivity. Benefited from increased understanding of crisis and awareness of personal warning signs to crisis. Will continue in IOP to prevent decompensation, stabilize mood, and increase healthy coping strategies. Narrative Note: []
--- NOTE | 2022-07-21 11:10 | BH.SGPN.GN ---
Behaviors/Verbalizations/Mental Status: []Pt alert and oriented, casually dressed and appropriately groomed. Eye contact good. Motor activity appropriate. Speech within normal limits. Affect congruent, mood anxious and euthymic. Thoughts linear, logical, no signs of hallucinations or delusions. Client Response/Progress/Benefit: []Pt responded well to session as evidenced by listening attentively to others and providing strategies during discussion.? Pt identified personal warning signs for crisis and gained further awareness of earliest warning signs. Pt created a crisis action plan to help better manage warning signs for crisis. Pt able to create action plan for warning sign of increased impulsivity. Pt's action plan included: ask herself what is normal baseline vs. outside of typical baseline impulsivity, remind self of consequences of impulsivity, and ask for extra support with maintaining boundaries from supports. Pt appeared to benefit from creating a crisis action plan and increasing self-awareness. Pt continue IOP tx to continue to improve mood stability, increase healthy coping, and prevent decompensation. Narrative Note: []
--- NOTE | 2022-07-24 08:15 | BH.MTP_ITS ---
Treatment Plan Review Date of Admission:: 06/28/22 Date of Treatment Plan Review:: 07/19/22 Admitting Diagnoses:: 1. Bipolar 1 disorder, most recent episode depression, severe with psychotic features (F31.5). 2. Generalized anxiety disorder. 3. Cluster B traits. 4. Marijuana and mushroom use disorder Current Diagnoses:: 1. Bipolar 1 disorder, most recent episode depression, severe with psychotic features (F31.5). 2. Generalized anxiety disorder. 3. Cluster B traits. 4. Marijuana and mushroom use disorder Patient's Response to Treatment:: Consistent attendance. Participates during group sessions, listens attentively to others, and provides supportive feedback. Shows improvements in consistently applying healthy coping skills and strategies. Completes homework from individual sessions and is an active participant in her tx. Status of Current Problems and Symptoms: Consistent progress with ongoing problems. Client continues to report significant difficulties with dependency on her roommates, but is actively working to improve anxiety in this area and develop increase confidence in her ability to do things independently of them. Client overall reports improvements in her mood, self-talk, ability to be present and enjoy herself, as well as reduced depression. Client struggling with continued substance use and is aware of the potential mental health risks this presents, however does not believe this is a tx concern at this time. Will continue to promote harms reduction. Client reporting continued anxious symptoms. Client has reported decrease in the intensity of her negative thought patterns and self-criticism. Per client's DSM 5 scores at mid-point scores indicate a 17% decrease in overall symptoms when compared to client's intake scores. Problem #1 Problem Name:: Depression Status of Goals:: obj 1 ? partially met with continued work encouraged. Client is able to identify healthy coping skills like exercise, opposite action, challenging negative thoughts, and mindfulness. Client struggles with consistent application of skills and not isolating at times. DSM 5 scores at mid-point show a 33% reduction in depression. Obj 2 - partially met, ongoing work encouraged. Client can identify negative core beliefs and thought patterns reinforcing her urges to isolate from roommates when depressed, minimize, and engage in self-de precating talk. At times she is able to identify and challenge or replace these thoughts, as we all use behavior activation skills to challenge them. However, continues to struggle with consistency. Continues to report engaging in substance use which may reinforce distortions and guilt. Team Recommendations:: Team recommends client to continue current goals and objectives. Encourages focus on reinforcement of skills and discussing strategies to increase consistent application of skills. Problem #2 Problem Name:: Anxiety Status of Goals:: obj 1 - partially met. client able to identify triggers and calming skills like grounding, belly breathing, and progressive muscle relaxation. DSM 5 scores indicate a slight increase in anxiety sx which is likely due to pt beginning exposure therapy to improve confidence and reduce anxiety around engaging in activities/going places independently of her roommates. Obj 2 - partially met. Pt able to identify distress tolerance and stress management skills however struggles with consistent application. Team Recommendations:: Team recommends client to continue current goals and objectives. Encourages focus on reinforcement of skills and discussing strategies to increase consistent application of skills.
--- NOTE | 2022-07-31 08:47 | BH.MDN_ITS ---
Multi-Disciplinary Note - Note 45-min Individual Time Started:: 09:03 Date: 07/31/22 Purpose of session/treatment goals addressed:: The purpose of this session was to follow-up on pt use of skills during week-long out of state trip with pt track team. Another purpose was to work on tx goal #1, specifically addressing sleep hygiene. Eye Contact:: Good Motor Activity:: Appropriate Appearance:: Casual Speech:: Appropriate Mood:: Euthymic, Anxious Affect:: Congruent Thoughts:: Linear, Logical, No evidence of hallucinations/delusions noted Staff Interventions:: psychoeducation on: - sleep hygiene, common bipolar sx, CBT techniques, mindfulness skills, strengths perspective, goal setting Client Response:: Client engaged and actively participated throughout session. Reports her trip to [place] for [employer] had gone ?alright?. Shared being able to manage her anxiety about being away from her roommates more successfully than she had expected and was able to interact some with her teammates as well. Discussed plans to continue hanging out with a few of these individuals outside of track to work on expanding her social network. Pt expressed beliefs that she had several sx of hypomania in the past week and is continuing to experience several sx. Described restlessness, a ?constant feeling I need to do more?, and sleeping less than 2 hours at night. Reports use of several healthy skills for management of restlessness and ?need to be doing more?. This included going for walks with her teammates, and laying on the beach listening to the ocean. Able to maintain boundaries of not spending money or going anywhere alone. Discussed with therapist fears she will not be able to continue management of sx back on campus as in the past she struggled with doing so. Extensive conversation reviewing pt current needs and impulses, as well as healthy ways to get these needs met. Identified a need to be away from campus, alone, and in nature. Recognized risk of being alone as in the past she disappeared for over 24 hours. Did well to identify going on a hike with friends at a local trail as a means to have her needs met. Also, discussed the need to check-in more consistently with self before engaging in something, plans to ask ?Is this safe??, ?Is this reasonable??, and ?Can I physically do it?? to prevent impulsivity. Pt went on to discuss her greatest frustration at present is lack of sleep. Noted impacted rational thinking and increased irritability as a result. Reviewed sleep hygiene and possible strategies for improving her ability to sleep at night which client was receptive of. Client identified wanting to discuss further with program psychiatrist and was assured she will be added to the schedule for this week. Risks/Concerns:: Client denies any suicidal ideations, plan, or intent as of 07/31/22. Client denies any homicidal ideations. Does note ongoing issues with sleep (less than 3 hours a night for the past week). Will consult with program psychiatrist to address further. Progress Toward Goals/Plan:: Progress noted. Pt continues to report an overall improved mood and ability to more consistently apply healthy skills for managing her symptoms of hermann and depression. Did well to apply several skills while away for the week, as well as continue to work on personal fear ladder goals, Shared ongoing anxiety about being away from her roommates for extended periods of time; however, is actively working on this. Continues to display insight when experiencing sx of hermann or depression and is actively using emotion regulation skills to manage sx. Continues to endorse anxiety, difficulties with challenging mistaken beliefs and self-criticism. Pt will continue IOP tx to reinforce healthy coping skills, continue to improve mood stability, and prevent decompensation. Time Stopped:: 09:50
--- NOTE | 2022-07-31 10:14 | BH.SGPN.GN ---
Behaviors/Verbalizations/Mental Status: []Pt alert and oriented, neatly dressed and groomed. Eye contact good. Motor activity appropriate. Speech within normal limits. Affect congruent, mood euthymic. Thoughts linear, logical, no signs of hallucinations or delusions. Client Response/Progress/Benefit: []Pt was an active participant AEB contributing to discussion, taking notes, and engaging in group activity. Connected with the topic of pitfalls and listened to group discussion on barriers that prevent from choosing a healthier path to mental wellness. Group worked together to identify examples of personal pitfalls and pt identified theirs as feeding into negative thinking and difficulty accepting.? Pt benefited from group as Pt learned to better identify potential barriers to improving mental health symptoms. Pt will continue IOP tx to promote mood stability, further reduce impulsivity, and increase emotional regulation skills. ? Narrative Note: []
--- NOTE | 2022-07-31 11:14 | BH.SGPN.GN ---
Behaviors/Verbalizations/Mental Status: []Client alert and oriented, casually dressed and groomed. Eye contact good. Motor activity appropriate. Speech within normal limits. Affect congruent, mood euthymic and anxious. Thoughts linear, logical, no signs of hallucinations or delusions. Client Response/Progress/Benefit: []Client receptive of session, engaged throughout AEB actively listening and contributing to discussion, as well as taking notes. Client participated in the experiential activity and did well to communicate ideas with peers and manage emotions. Client and group processed how the emotions and perspective of the group impacted the activity. Group worked together to identify different coping skills to help manage pitfalls. Client identified pitfalls they struggle with and shared wanting to work on pitfall of separation anxiety by using strategies of small exposure goals, giving herself credit for the progress she is making, as well as positive self-talk. Benefited from identifying personal pitfalls and strategies to overcome these pitfalls. Will continue IOP tx to increase overall functioning, prevent decompensation and improve management of emotion dysregulation. Narrative Note: []
--- NOTE | 2022-08-02 09:03 | BH.SGPN.GN ---
Behaviors/Verbalizations/Mental Status: []Eye contact good, casually dressed, motor activity appropriate, speech normal rate and tone, mood euthymic, congruent affect, thoughts linear and intact, no evidence of delusions or hallucinations. Reviewed pt's symptom tracker, suicidal ideation within baseline, pt denies plan, or intent as of this date. Future oriented. Client Response/Progress/Benefit: []Pt responded well to session, attentive and willing to process with group. Pt reported mental health positive as not losing my shit with having her friends all gone during spring. Pt shared she has separation anxiety issues and typically has a hard time when is away from friends/family. Pt stated she has been hanging out with one of her friends which has been helping her manage emotions. pt reported additional mental health positive as changing her jewelry out without anxiety. Client reported current stressor is wanting to get back on [place] but is worried her outpatient psychiatrist won't prescribe it. Appeared to benefit from group?discussion and supportive environment. Recommended continued IOP tx to continue to improve healthy skills, promote anxiety management, as well as prevent decompensation.
--- NOTE | 2022-08-02 11:10 | BH.SGPN.GN ---
Behaviors/Verbalizations/Mental Status: []Pt alert and oriented, neatly dressed and groomed. Eye contact good. Motor activity appropriate. Speech within normal limits. Affect congruent, mood euthymic. Thoughts linear, logical, no signs of hallucinations or delusions Client Response/Progress/Benefit: []Pt responded well to session AEB completing the resilience worksheet provided. Pt participated in the discussion and worked cooperatively with group to identify strategies to enhance each of the components discussed. Pt reports belief they already use resilience traits of??self-awareness, making connections, and taking decision action.? Pt shared these traits will help pt overcome current stressors. Pt stated they would like to continue to develop resilience trait of ?avoid seeing crises as insurmountable problems.? Pt seemed to benefit from discussing strategies for improving personal resilience and identifying resilience traits pt already possesses. Progress noted as pt reports utilizing healthy coping skills outside of IOP tx. Will continue IOP tx to further improve mood stability, increase distress tolerance skills, and promote use of healthy coping skills. Narrative Note: []
--- NOTE | 2022-08-02 12:47 | PCM.BH.PN_ITS ---
Progress Note Progress Note: History of Present Illness/Interim History: The patient is a 21-year-old single, female with a history of anxiety, bipolar 1 disorder who is seen in follow-up at the [facility] behavioral health IOP program. I last saw the patient 3 weeks ago prior to her going on a trip for her school sports. The patient feels that she has been hypomanic for the last few weeks. She states that she has been sleeping only 3 hours per night and having more irritability, anger and grandiose thinking. She has been more impulsive and is felt more hyperaware of her surroundings. Her roommates feel that she is hypomanic and they feel that she is also talking faster than she usually does. She feels her thoughts are also moving faster in her brain. She has last used marijuana 5 days ago and is trying to cut down. She denies any use of any hallucinogen drugs such as psilocybin which she has used in the past. The patient states she has been cutting down on her marijuana usage until the manic hypomanic episode began. She denies use of any other drugs except as noted above. She denies also passive thoughts of , suicidal ideation, plan for suicide, homicidal ideation, hallucinations or delusions. Current Psychiatric Medications: [] Abilify 5 mg p.o. daily (plans to discontinu e this in 5 days); Lamictal 100 mg p.o. daily; lithium carbonate ER 400 mg p.o. daily (being weaned); Vraylar 3 mg p.o. daily (x3-1/2 weeks) Mental Status Examination: [] The patient is a 21-year-old female who appears normal for stated age and is casually dressed and groomed with good hygiene. She is ambulatory with a normal gait and has no psychomotor agitation or retardation. She is cooperative during the interview. Eye contact is good and speech is normal rate and rhythm and fluent with no pressure. Mood is mildly euphoric. Affect is full and normal. Thought process is organized and goal-directed. Thought content: The patient feels she is hypomanic and would like to go back up on her lithium as she felt she did better with this. There is no evidence of passive thoughts of , plan for suicide, suicidal ideation, homicidal ideation, hallucinations or delusions. Reality testing is intact. Insight is good. Judgment is intact. Impulsivity is high. Diagnoses: [] 1. Bipolar 1 disorder, current episode hypomanic (F31.0) 2. Generalized anxiety disorder 3. Cluster B traits 4. Marijuana use disorder 5. Primary support issues Plan: [] The patient will continue the IOP program as the structure, support, education and group therapy will hopefully prevent worsening of the patient's symptoms which could require hospitalization. She felt safe during the interview and if it anytime she does not feel safe she will let us know or go to the emergency room. The risk, options, possible complications and side effects of the medications were again discussed with the patient and she understands and accepts these. Patient would like to increase her lithium as she felt she did better on it and is afraid of becoming manic as she becomes very impulsive and engages in risky behavior when manic. She wishes to be referred to a kidney specialist to see if she could stay on her lithium. The patient agrees to get baseline lithium level, renal panel and a TSH. Prescription is sent in for lithium carbonate ER 400 mg, patient is to take 800 mg p.o. nightly. The patient was on 1200 mg in the past. She will continue her other medications at the current doses. Patient will be referred to a rubber covering machine operator and blood work will be rechecked in the next week or 2 on the higher dose of lithium to see if there is a change in her kidney function and if it is possible that she could stay on the lithium. She will continue to follow-up with her outpatient medical and psychiatric providers and I will see the patient in follow-up in 1 week.
--- NOTE | 2022-08-04 09:05 | BH.SGPN.GN ---
Behaviors/Verbalizations/Mental Status: []Pt alert and oriented, neatly dressed and groomed. Eye contact good. Motor activity appropriate. Speech rapid. Affect full, mood euphoric. Thoughts linear, logical, no signs of hallucinations or delusions. Reviewed pt?s symptom tracker, no risk for suicidal ideation, plan, or intent as of 08/04/22 Client Response/Progress/Benefit: []Pt responded well to session, attentive and engaged. Pt reports feeling excited this morning, but pt shared belief she is manic. Pt stated she has not slept in 72 hours and pt worries this will lead to psychosis. Pt reports belief that although she is manic, pt feels she is managing her symptoms much better than she has in the past. Pt is asking herself questions before acting on impulse and she is taking feedback from friends who care about her wellbeing. Pt also advocated for herself and got her medication at a lower cost which pt needs for mood stability. Pt appeared to benefit from therapist feedback to keep safety precautions in place and keep pt's friends involved. Pt will continue IOP tx to monitor mood, increase use of healthy coping skills, and improve distress tolerance skills. Narrative Note: []
--- NOTE | 2022-08-04 10:10 | BH.SGPN.GN ---
Behaviors/Verbalizations/Mental Status: [] Client alert and oriented, casually dressed and groomed. Eye contact good. Motor activity appropriate. Speech increased. Affect congruent, mood euthymic. Thoughts linear, logical, no signs of hallucinations or delusions. Client Response/Progress/Benefit: [] Client responded well to session AEB sharing and listening attentively to others. Client with group provided examples of benefits of having social support which included having someone to vent to, getting direction, and having people there to catch you when you fall. Client identified obstacles preventing us from using out social supports and indicated that fear of abandonment from opening up to others causes her to not utilize them when needed. Client participated in experiential activity illustrating the importance of having multiple social supports. Client provided supportive feedback and problem solving throughout group activity. Client participated in group processing of the activity, stating having communication being the biggest factor in being successful. Client appeared to benefit from increased knowledge of the benefits of social support and greater self-awareness. Will continue IOP treatment to increase self-worth, prevent decompensation, and increase overall functioning. Narrative Note: []
--- NOTE | 2022-08-04 11:15 | BH.SGPN.GN ---
Behaviors/Verbalizations/Mental Status: [] Client alert and oriented, casually dressed and groomed. Eye contact good. Motor activity appropriate. Speech increased. Affect congruent, mood euthymic. Thoughts linear, logical, no signs of hallucinations or delusions. Client Response/Progress/Benefit: [] Client was an active participant throughout AEB contributing to discussion, providing personal examples, and taking notes. Client provided input during discussion on the types of support our supports can provide. Client able to identify current support system and barriers that get in the way of using supports by drawing out their own support net. Client reported after identifying what type of supports they receive; they gained awareness that they could benefit from more emotional supports. Client identified steps to achieve this by reaching out more, opening up to others, and be more trusting. Client seemed to benefit from identifying the type of support client needs to work on improving. Client recommended to continue IOP tx to increase healthy coping skills, prevent decompensation and increase overall functioning. Narrative Note: []
--- NOTE | 2022-08-07 09:05 | BH.SGPN.GN ---
Behaviors/Verbalizations/Mental Status: []Pt alert and oriented, neatly dressed and groomed. Eye contact good. Motor activity appropriate. Speech within normal limits-much less rapid than 08/04/22. Affect congruent, mood euthymic. Thoughts linear, logical, no signs of hallucinations or delusions. Reviewed pt?s symptom tracker, no risk for suicidal ideation, plan, or intent as of 08/07/22 Client Response/Progress/Benefit: []Pt responded well to session, attentive and engaged. Pt reports feeling excited this morning and less manic than she did last week. Pt shared she finally got sleep and pt feels she did a good job of monitoring her choices and managing impulse while manic. Pt is looking forward to celebrating an important day at her college today with her friends. Pt has done well while in IOP with monitoring her mood and utilizing distress tolerance skills. Pt will continue IOP tx to promote mood stability, further increase distress tolerance skills, and reinforce healthy coping skills. Narrative Note: []
--- NOTE | 2022-08-07 10:05 | BH.SGPN.GN ---
Behaviors/Verbalizations/Mental Status: [] Client alert and oriented, casually dressed and groomed. Eye contact good. Motor activity appropriate. Speech within normal limits. Affect congruent, mood euthymic. Thoughts linear, logical, no signs of hallucinations or delusions. Client Response/Progress/Benefit: [] Client responded well to session, contributing to discussion and engaged during the activity. Group identified the benefits of change which included: personal growth, positive perspective, increased confidence and better mental health. Worked with the group to identify barriers to change, which included: uncomfortable emotions such as anxiety, lack of awareness, low energy, support system, and negative thinking. Client participated along with group in activity where they identified and discussed the emotions related to change. Client reported she related to all the emotions associated with change especially fear, due to that personally being an obstacle for her in making changes. Benefited from increased awareness and understanding of emotions, benefits, and barriers related to change. Will continue IOP tx to continue to practice self care, prevention decompensation, and increase overall functioning. Narrative Note: []
== END 2022-08-11 23:59 ==
LOC: BHIOP 06:49
PROVIDERS: Referring Provider Psychiatry & Neurology Psychiatry; Visit Provider Psychiatry & Neurology Psychiatry
DX: F31.0 Bipolar disorder, current episode hypomanic (principal); F41.1 Generalized anxiety disorder; F12.90 Cannabis use, unspecified, uncomplicated; Z79.899 Other long term (current) drug therapy
CPT/HCPCS: S9480; 90834; 90853

== ENCOUNTER → 2022-08-03 | Outpatient (CLI) | payer BC, SELFPAY ==
[2022-08-03 09:46] LABS: Lithium < 0.20 mmol/L (0.60-1.20)
[2022-08-03 09:53] LABS: Albumin, Serum 3.8 g/dL (3.2-5.0); BUN 14 mg/dL (7-18); Calcium,Total 9.7 mg/dL (8.5-10.1); Chloride 105 mmol/L (98-107); EST Glomerular Filtration Rate 75 mL/min (>60); Est Glom Filt Rate - Afr Amer 91 mL/min (>60); Glucose 107 mg/dL (74-106); Phosphorus 3.7 mg/dL (2.5-4.9); Potassium 4.3 mmol/L (3.5-5.1); Sodium Level 140 mmol/L (136-145); Thyroid Stim Hormone (TSH) 1.43 uIU/mL (0.358-3.74)
== END | disposition home or self-care (01) ==
PROVIDERS: Referring Provider Psychiatry & Neurology Psychiatry; Visit Provider Psychiatry & Neurology Psychiatry
DX: Z79.899 Other long term (current) drug therapy (principal)
CPT/HCPCS: 36415; 80069; 80178; 84443

== ENCOUNTER 2022-08-14 08:14 | Outpatient (RCR) | payer BC, SELFPAY ==
[2022-08-12 02:02] VITALS: BP 129/66; PULSE 66
--- NOTE | 2022-08-14 09:00 | BH.SGPN.GN ---
Behaviors/Verbalizations/Mental Status: [] Eye contact good. Motor activity appropriate. Speech within normal limits. Affect congruent, mood euthymic. Thoughts linear, logical, no signs of hallucinations or delusions. Reviewed client?s symptom tracker, no risk for suicidal ideation, plan, or intent. Client Response/Progress/Benefit: [] Client responded well to session, attentive and listening to fellow participants as they processed with the group. Client noted mental health positive as getting a new kitten. Client reported additional mental health positive as being proactive for her independent study by completing things that didn't have to be done yet. Client noted current stressor as having intrusive thoughts when she drives her car that she is going to crash. Client stated she has struggled with intrusive thoughts since she was young, but admitted she hasn't brought this up to her IOP therapist yet. Seemed to benefit from support from peers. Recommended continued IOP tx to continue use of healthy coping skills, challenge negative thoughts, and prevent decompensation.
--- NOTE | 2022-08-14 11:00 | BH.SGPN.GN ---
Behaviors/Verbalizations/Mental Status: [] Client Response/Progress/Benefit: [] Pt was an active participant in group discussions and experiential activity. Attentive during psychoeducation on the 4 A's (Avoid, adapt, alter, accept) of coping with stress as well as strategies to identify stressors in which one has no control, little control, or a great deal of control over. Was able to identify the connection between the experimental activity and utilization of stress management skills. Benefited from increased awareness of stress management strategies. Will continue in IOP to maintain safety, prevent decompensation, and stabilize mood. Narrative Note: []
--- NOTE | 2022-08-14 11:44 | BH.MDN ---
Multi-Disciplinary Note - Note 60-min Individual Time Started:: 10:06 Date: 08/14/22 Purpose of session/treatment goals addressed:: To address current stressors and discuss strategies to help cope with these stressors. Another goal was to discuss discharge and aftercare. Eye Contact:: Good Motor Activity:: Appropriate Appearance:: Casual Speech:: Appropriate Mood:: Euthymic, Anxious Affect:: Congruent Thoughts:: Linear, Logical, No evidence of hallucinations/delusions noted Staff Interventions:: thought challenging, psychoeducation on: - intrusive thoughts and provided pt with several chapters from the Overcoming Unwanted Intrusive Thoughts book as an additional resource, CBT techniques, discharge planning, strengths perspective, other - reviewed and gave pt a maintenance plan to complete before her last day. Client Response:: Pt responded well to session, open to meeting with therapist. Pt shared she is feeling overall improved and more emotionally stable in the past two weeks. Indicated beliefs she is no longer manic, but is experiencing a low grade depression. Pt reported this is common when on higher doses of [place] and she has recently increased to 800 mg. Noted she feels this has helped with improving her sx management and she feels capable of treating her depressive sx on this dose. Additionally, recognized a low mood may be common when stabilizing following a manic episode. Shared that since she has stabilized her moods, she has begun to see higher frequency and intensity of intrusive thoughts. Recognized the presence of intrusive thoughts indicate progress with managing her bipolar as she is stable enough to recognize her thought patterns and impacts they are having on her functioning. Receptive of psychoeducation on intrusive thoughts, what increases one?s vulnerability to intrusive thoughts, and ways to begin managing these thoughts. Share her thoughts often scare her as ?I know I don?t want the things I?m thinking to happen?. Connected with the concept of acknowledging but not engaging with the thought, reports plans to practice grounding and focusing on other tasks to reduce engagement with these thoughts. Pt feels ready to discharge from [facility] this week or next week, but would like to follow-up with her outpatient psychiatrist regarding medication management prior to doing so. Pt was encouraged to complete a maintenance plan for homework. Risks/Concerns:: Pt denies any active SI, plan, or intent. Does report intrusive thoughts of , but denies actually experiencing active SI. Reports motivations to live and protective facotrs. Reports ability to maintain safety and seek supportive resources should she need. Progress Toward Goals/Plan:: Pt is making significant progress towards her tx goals AEB self-report of reduced manic sx and improved ability to manage her emotions, as well as improved ability to manage anxiety when away from her roommates. Pt is actively using healthy coping skills outside of IOP and her perspective is more positive and confident. Pt is experiencing a recent change in medication right now so her mood is slightly dysthymic, but overall she is reporting consistent mood improvement. Pt will continue IOP tx for one more week to reinforce healthy coping skills and establish aftercare. Time Stopped:: 10:58
--- NOTE | 2022-08-16 09:00 | BH.SGPN.GN ---
Behaviors/Verbalizations/Mental Status: []Eye contact good, casually dressed, motor activity appropriate, speech normal rate and tone, mood euthymic, congruent affect, thoughts linear and intact, no evidence of delusions or hallucinations. Reviewed pt's symptom tracker, pt suicidal ideation within established baseline, denies any plan or intent. Future oriented. Client Response/Progress/Benefit: []Pt responded well to session, attentive and willing to process with group. Identified current mental health wins as continuing to make progress in managing her emotions. Provided an example of not engaging in ?people pleasing? behaviors or trying to ?fix? the problem when sensing tension between several of her housemates. Noted instead practicing acceptance and focusing on what is in her control. Additional win identified as practicing self-care on her way to group this morning by rolling down the windows and listening to uplifting music.. Current stressor noted as the upcoming end of the semester. Appeared to benefit from group support and encouragement. Continues to display progress in use of thought challenging and coping skill application. Recommended continued IOP tx to continue to improve consistent use of healthy skills, promote mood stability, as well as prevent decompensation. Narrative Note: []
--- NOTE | 2022-08-16 10:10 | BH.SGPN.GN ---
Behaviors/Verbalizations/Mental Status: [] Eye contact is good. Motor activity is appropriate. Appearance is casual. Speech is Appropriate. Mood is euthymic. Affect is full. Thoughts are linear and logical. No evidence of psychosis. Client Response/Progress/Benefit: [] Pt was an active participant in group discussion. Attentive during psychoeducation on the CBT [place] (Thoughts, Behaviors, Emotions). Engaged in small group session in which members identified common thoughts, emotions, and actions associated with an event associated with fear of rejection. Completed worksheet in which pt identified a thought that is keeping them stuck or is in obstacle to increased mental wellness. Benefited from increased awareness of the basis of CBT therapy as well as thoughts are impacting pt' progress. Will continue in IOP to maintain safety, prevent decompensation/re-admission to psych unit, stablize mood, and to increase healthy coping skills. Narrative Note: []
--- NOTE | 2022-08-16 13:06 | PCM.BH.PN ---
Progress Note Progress Note: History of Present Illness/Interim History: The patient is a 21-year-old single, female with a history of bipolar 1 disorder and anxiety who is seen in follow-up at the [facility] behavioral health IOP program. I last saw the patient 2 weeks ago and at that time she wanted to stay on her lithium. Her preliminary labs were all within normal limits and her lithium dose was then increased to 900 mg p.o. daily 2 weeks ago. The patient states she is tolerating the medication well and has no side effects. She is to have a tremor sometimes on lithium but she does not have 1 now. She has been compliant with the medication and feels that her mood has stabilized and she has no remaining hypomania that she had several weeks ago. She feels like her mood is trending a little bit downward after coming down from hypomania but not outright depressed. She denies any impulsivity, irritability or grandiose thinking. Sleep is increased to 9 hours a night which is normal for her. She denies any marijuana use since 1 month 1 month ago. She denies passive thoughts of , suicidal ideation, plan for suicide, homicidal ideation, hallucinations or delusions. Current Psychiatric Medications: [] Abilify discontinued 1 week ago as directed; Lamictal 75 mg p.o. daily; lithium carbonate ER 900 mg p.o. nightly (on this dose for 2 weeks now); Vraylar 3 mg p.o. daily (x5-1/2 weeks). Mental Status Examination: [] Patient is a 21-year-old female who appears normal for stated age and is casually dressed and groomed with good hygiene. She has no psychomotor agitation or retardation and is ambulatory with a normal gait. She is cooperative and pleasant during the interview. Eye contact is good and speech is normal rate and rhythm and fluent with no pressure. Mood is mildly depressed to euthymic. Affect is full and normal. Thought processes organized and goal-directed. Thought content: There is no evidence of passive thoughts of , suicidal ideation, homicidal ideation, hallucinations or delusions. Reality testing is intact. Insight is good. Judgment is intact. Impulsivity is moderate to high. Diagnoses: [] 1. Bipolar 1 disorder, current episode high hypomanic (F 31.0); resolving 2. Generalized anxiety disorder 3. Cluster B traits 4. Marijuana use disorder 5. Primary support issues Plan: [] The patient will continue the IOP program as the structure, support, education and group therapy will hopefully prevent worsening the patient's symptoms. The risk, options and possible complications and side effects of the medications were again discussed with the patient and she understands accepts these. She understands that we are referring her to a pasteurizing machine operator to watch her kidney function as she was taken off lithium for her creatinine mildly increasing in the past. 2 weeks after increasing the dose we ordered renal panel, lithium level (trough), and TSH today. The patient has been given a referral and she will call for an appointment with the pasteurizing machine operator today. Prescription for lithium carbonate ER was refilled today at 450 mg, 2 p.o. nightly. She will continue to follow-up with her outpatient providers and I will see the patient in follow-up in 2 weeks or as needed.
--- NOTE | 2022-08-18 09:05 | BH.SGPN.GN ---
Behaviors/Verbalizations/Mental Status: [] Eye contact is good. Motor activity is appropriate. Appearance is casual. Speech is Appropriate. Mood is euthymic. Affect is full. Thoughts are linear and logical. No evidence of psychosis. Reviewed daily check in sheet and no reports of suicidal ideations or intent. Client Response/Progress/Benefit: [] Pt was an active participant in group discussion. Attentive. Daily symptom tracker noters 2/5 for anxiety and /5 for depression. Emotion for today is nervous. Shared with the group that today is her last day of IOP. Shared that the groups/topics that resonated the most with her during IOP were communication style and setting boundaries. Able to identify her progress in IOP. Worked through obstacles, set-backs, and hypomania while in IOP which increased her confidence in her ability to manage these in the future. She remains linked with counselor at [facility] as well as hide splitter at [facility], however she is planning on working [id number] which will limit interactions with her providers. Benefited from group support, encouragement, and feedback. Will be discharged from IOP today. Narrative Note: []
--- NOTE | 2022-08-18 10:15 | BH.SGPN.GN ---
Behaviors/Verbalizations/Mental Status: []Pt alert and oriented, casually dressed and groomed. Eye contact good. Motor activity appropriate. Speech within normal limits. Affect congruent, mood content, euthymic. Thoughts linear, logical, no signs of hallucinations or delusions. Client Response/Progress/Benefit: []Pt was an engaged participant AEB providing input, listening to others, and taking notes. Participated in interactive group discussion on internal and external barriers to mental health progress. Pt described current reality using an oasis metaphor. Pt shared feeling like ?I?m in more control of managing my mental health and using my supports, but I want to continue to improve my ability to cope with chronic stressors.? Reported desired reality is being able to maintain the progress she has made and further gain independence. Pt shared personal barriers to desired realty include: negative core beliefs, difficulties coping with disappointment, and unrealistic expectations. Benefited from increased awareness of current barriers to progress as well as current/desired realities. Pt to d/c from [facility] today and continue with outpatient mental health services. Narrative Note: []
--- NOTE | 2022-08-18 11:10 | BH.SGPN.GN ---
Behaviors/Verbalizations/Mental Status: []Client alert and oriented, casually dressed and groomed. Eye contact good. Motor activity appropriate. Speech within normal limits. Affect congruent to topics being discussed, mood euthymic. Thoughts linear, logical, no signs of hallucinations or delusions. Client Response/Progress/Benefit: []Client an active participant, encouraging peers and contributed as group brainstormed ideas on how to cope with internal barriers that keep clients stuck from moving towards goals. Able to identify barriers to desired reality. Worked with group to identify strategies to help overcome barriers. Identified personal barriers to desired reality. Client wants to work on overcoming the barrier of negative perspective by looking at things from a outside perspective. Benefited from group by identifying obstacles and solutions to desired reality. client has made significant treatment progress and will discharge from [facility] today.
--- NOTE | 2022-08-18 14:34 | BH.DS_ITS ---
Discharge Summary - Demographics Date of Admission:: 06/28/22 Discharge Date: 08/18/22 Presenting Problems at Admission:: The patient is a 21-year-old single female who was referred to the [facility] behavioral health IOP program by her counselor at the [facility]. The patient in the past 2 years has been diagnosed with anxiety, bipolar 1 disorder with psychotic features among others. The patient states she was diagnosed with PMDD when she was 13 years old. The patient had a psychiatric admission in August 2021 at [facility] after she was started on Prozac and became impulsive, ran into the nassar and was suicidal w/ possible psychosis. She states that her symptoms started when she began attending college. She was smoking weed and occasionally using mushrooms psychedelic drugs. Hx of hermann, auditory, and visual hallu cinations, as well as increased SI while taking Prozac following hospitalization. She does admit that she has been smoking marijuana once or twice a week all through college. She states that she experiences manic episodes and bizarre behaviors like auditory hallucinations at times. The patient has had various medications since being discharged in August from the hospital in August 2021 including Abilify and Seroquel and lithium. She says she has been somewhat paranoid in the last few weeks she has been depressed for the past 2 or 3 weeks and feels hopeless and is afraid that things will get bad again the patient gets manic episodically and she said her last manic episode was in March 2022 when she had impulsive behavior, hypersexuality, decreased sleep to less than or equal to 3 hours a night and was not tired. She was also hallucinating at that time. The patient currently has had some passive thoughts of but denies any suicidal ideation since 1 week ago. Patient denies any self-harm. Patient has had no suicide attempts since December 2021. She endorses hopelessness, worthlessness and anhedonia, isolation, increased sleep, avoidance, and increased rumination. Discharge Diagnoses:: 1. Bipolar 1 disorder, current episode high hypomanic (F 31.0); resolving. 2. Generalized anxiety disorder. 3. Cluster B traits. 4. Marijuana use disorder Reason for Discharge:: Reason for Discharge:: Pt has accomplished her treatment goals AEB self-report of improved mood and functioning as well as reduction of DSM-5 scores. Pt no longer meets criteria for IOP level of care and will transition to outpatient services. - Treatment Progress During Treatment & Response: Pt has responded well to treatment as evidenced by Pt consistently attending IOP sessions and her reduction of DSM-5 scores since admission. Pt was always attentive and receptive to learning during group and individual sessions. Pt actively applies coping skills outside of IOP and reports overall her mood is improved and she is functioning better than she was several months ago. Pt?s overall symptom reduction is 52% since admission with anger decreasing by 100%, depression decreasing by 50%, suicidal ideations decreasing by 100%, and anxiety decreasing by 38%. Pt has increased self- confidence in her ability to manage stressors and sx of hermann and depression, as well as improved independence. Pt will continue with outpatient counseling and psychiatry services. Issues Still to be Addressed:: Pt can continue to work on her fear ladder to reduce social anxiety and fear of separation from roommates. Pt can also benefit from continuing to reach out to supports and build new connections. Pt is also recommended to continue to work on intrusive thinking patterns and ongoing management of hermann/emotion regulation skills. Lastly, pt can benefit from increasing self-esteem and combating distortions. Discharge Recommendations/Instructions:: 1. Weekly appointment with Natalie at [facility] for individual counseling. 2. Regular a ppointments with Kim at the [facility] for medication management. Discharge Handout: Complete Discharge Handout with client on aftercare options and continuity of care.
--- NOTE | 2022-08-18 14:42 | BH.IGGP_ITS ---
Aftercare Plan - Demographics Treatment End Date:: 08/18/22 Psychiatrist:: Charlene Huston Psychiatrist Office #:: [phone] [facility] Therapist:: Ansley Lau Therapist Phone #:: [phone] - Plan Details Progress/Aftercare Plan Details:: Sabine has responded well to treatment as evidenced by consistently attending IOP sessions and her reduction of DSM-5 scores since admission. She was always attentive and receptive to learning during group and individual sessions. Sabine actively applies coping skills outside of [facility] and reports overall her mood is improved and she is functioning better than she was several months ago. Her overall symptom reduction is 52% since admission with anger decreasing by 100%, depression decreasing by 50%, suicidal ideations decreasing by 100%, and anxiety decreasing by 38%. She has increased self-confidence in her ability to manage stressors and sx of hermann and depression, as well as improved independence. Plan is to continue with outpat [facility] counseling and psychiatry services. Strategies for Success:: 1. Opposite action! Continue to challenge yourself to not let your emotions or impulses drive your bus. 2. Set small goals each day and break down bigger stressors. 3. Continue to ask for help and advocate for yourself. 4. Challenge distorted thoughts. Remember that something can be overwhelming AND you can cope with it. 5. Keep challenging yourself to ask yourself ?Is it reasonable?? ?Is it safe?? ?Can I physically do it?? when experiencing warning signs for hermann 6. Self-care! this means the fun and not so fun stuff. 7. Give yourself credit! 8. Continue working on your fear ladder! 9. Keep reminding yourself it?s not your responsibility to keep the peace in your house. You don?t have to take on anyone else?s problems just because you?re uncomfortable. 10. Continue to check-in with yourself. - Appointments Appointments/Referrals to Other Services:: 1. Weekly appointment with Natalie at [facility] for individual counseling. 2. Regular appointments with Kim at the [facility] for medication management. - Medications Home Medications: Home Medications Lo Loestrin Fe 09/05/21 cariprazine 3 mg capsule (Vraylar) 3 mg PO DAILY 30 days #30 caps 07/12/22 lamotrigine 100 mg tablet (Lamictal) 100 mg PO DAILY 08/09/22 lithium carbonate 450 mg tablet,extended release 450 mg PO DAILY 30 days #60 tabs 08/16/22
== END 2022-08-18 12:02 | disposition home or self-care (01) ==
LOC: BHIOP 08:14
PROVIDERS: Referring Provider Psychiatry & Neurology Psychiatry; Visit Provider Psychiatry & Neurology Psychiatry
DX: F31.0 Bipolar disorder, current episode hypomanic (principal); F41.1 Generalized anxiety disorder; F12.90 Cannabis use, unspecified, uncomplicated; Z79.899 Other long term (current) drug therapy
CPT/HCPCS: S9480; 90837; 90853